=== PATIENT | male | born 1970 | race Caucasian/White ===

== ENCOUNTER 2021-01-06 07:20 | Day surgery (SDC) | payer MEDICARE ==
[2021-01-06] MEDS ORDERED: Depo-Medrol 40 MG/ML IM ONE (07:21)
[2021-01-06] MEDS ORDERED: Xylocaine-Mpf 2% 5 Ml Vial IJ ONE (07:21)
[2021-01-06] MEDS ORDERED: Xylocaine 1% Vial 30 ML PF IJ ONE (07:21)
[2021-01-06] MEDS ORDERED: DIPRIVAN 200 MG/20 ML IV ONE (10:13)
[2021-01-06] MEDS ORDERED: Ketamine HCl 50 MG/ML ONE (10:13)
--- NOTE | 2021-01-06 11:01 | XRAY ---
Indication: Bilateral L4-S1 MBB. Intraoperative fluoroscopy provided for 12 seconds. Single digital spot image submitted for interpretation demonstrates posterior needle tips projecting over the expected left and right L4-S1 nerve roots. Correlate with intraoperative findings/report.
--- NOTE | 2021-01-06 11:04 | XRAY ---
12 seconds fluoroscopy time in surgery for bilateral L4-S1 MBB.
[2021-01-06] MEDS ORDERED: Lactated Ringers 1,000 ML IV ONE (16:32)
== END 2021-01-06 10:42 | disposition home or self-care (01) ==
LOC: SDC-PAIN 07:20
PROVIDERS: ATTEND Psychiatry & Neurology Pain Medicine
DX: M47.816 Spondylosis without myelopathy or radiculopathy, lumbar region (principal); I10 Essential (primary) hypertension; E11.42 Type 2 diabetes mellitus with diabetic polyneuropathy; Z79.899 Other long term (current) drug therapy
CPT/HCPCS: 64493; 64494; 72020; 77002; 82947; J1030; J2001; J2704

== ENCOUNTER 2021-02-24 07:51 | Day surgery (SDC) | payer MEDICARE ==
[2021-02-24] MEDS ORDERED: BUPIVACAINE 0.5% VIAL IJ ONE (07:52)
[2021-02-24] MEDS ORDERED: DIPRIVAN 200 MG/20 ML IV ONE (08:35)
--- NOTE | 2021-02-24 10:06 | XRAY ---
Indication: Bilateral L4-S1 MBB. Intraoperative fluoroscopy provided for 6 seconds. Single digital spot image submitted for interpretation demonstrates posterior needle tips projecting over the expected left and right L4-S1 nerve roots. Correlate with intraoperative findings/report.
--- NOTE | 2021-02-24 10:08 | XRAY ---
6 seconds fluoroscopy time in surgery for bilateral L4-S1 MBB.
[2021-02-24] MEDS ORDERED: Lactated Ringers 1,000 ML IV ONE (16:09)
== END 2021-02-24 09:01 | disposition home or self-care (01) ==
LOC: SDC-PAIN 07:51
PROVIDERS: ATTEND Psychiatry & Neurology Pain Medicine
DX: M47.816 Spondylosis without myelopathy or radiculopathy, lumbar region (principal); E11.42 Type 2 diabetes mellitus with diabetic polyneuropathy; I10 Essential (primary) hypertension; Z79.899 Other long term (current) drug therapy
CPT/HCPCS: 64493; 64494; 72100; 77002; 82947; J2704

== ENCOUNTER 2021-03-24 06:57 | Day surgery (SDC) | payer MEDICARE ==
[2021-03-24] MEDS ORDERED: Xylocaine 1% Vial 30 ML PF IJ ONE (06:58)
[2021-03-24] MEDS ORDERED: BUPIVACAINE 0.5% VIAL IJ ONE (06:58)
[2021-03-24] MEDS ORDERED: Lactated Ringers 1,000 ML IV ONE (16:31)
--- NOTE | 2021-03-24 17:39 | XRAY ---
16 seconds fluoroscopy time in surgery for left L4-S1 RFA.
== END 2021-03-24 09:18 | disposition home or self-care (01) ==
LOC: SDC-PAIN 06:57
PROVIDERS: ATTEND Psychiatry & Neurology Pain Medicine
DX: M47.816 Spondylosis without myelopathy or radiculopathy, lumbar region (principal); E11.42 Type 2 diabetes mellitus with diabetic polyneuropathy; I10 Essential (primary) hypertension; Z79.899 Other long term (current) drug therapy
CPT/HCPCS: 64635; 64636; 72100; 77002; 82947; J2001

== ENCOUNTER 2021-03-31 06:57 | Day surgery (SDC) | payer MEDICARE ==
[2021-03-31] MEDS ORDERED: Depo-Medrol 40 MG/ML IM ONE (06:58)
[2021-03-31] MEDS ORDERED: BUPIVACAINE 0.5% VIAL IJ ONE (06:58)
[2021-03-31] MEDS ORDERED: Xylocaine 1% Vial 30 ML PF IJ ONE (06:58)
[2021-03-31] MEDS ORDERED: DIPRIVAN 200 MG/20 ML IV ONE (07:29)
--- NOTE | 2021-03-31 10:53 | XRAY ---
Indication: Right L4-S1 RFA. Intraoperative fluoroscopy provided for 21 seconds. 3 digital spot images submitted for interpretation demonstrates posterior needle tips projecting over the expected right L4-S1 nerve roots. Correlate with intraoperative findings/report.
--- NOTE | 2021-03-31 11:00 | XRAY ---
21 seconds fluoroscopy time in surgery for right L4-S1 RFA.
[2021-03-31] MEDS ORDERED: Lactated Ringers 1,000 ML IV ONE (15:24)
== END 2021-03-31 08:42 | disposition home or self-care (01) ==
LOC: SDC-PAIN 06:57
PROVIDERS: ATTEND Psychiatry & Neurology Pain Medicine
DX: M47.816 Spondylosis without myelopathy or radiculopathy, lumbar region (principal); I10 Essential (primary) hypertension; E11.42 Type 2 diabetes mellitus with diabetic polyneuropathy; Z79.899 Other long term (current) drug therapy
CPT/HCPCS: 64635; 64636; 72100; 77002; 82947; J1030; J2001; J2704

== ENCOUNTER 2021-05-19 09:49 | Day surgery (SDC) | payer MEDICARE | END 2021-05-19 10:00 | disposition home or self-care (01) | LOC: SDC-PAIN 09:49 | PROVIDERS: ATTEND Psychiatry & Neurology Pain Medicine | DX: Z53.09 Procedure and treatment not carried out because of other contraindication (principal); E11.42 Type 2 diabetes mellitus with diabetic polyneuropathy; I10 Essential (primary) hypertension; Z79.899 Other long term (current) drug therapy | CPT/HCPCS: 82947 ==

== ENCOUNTER 2022-05-11 06:40 | Day surgery (SDC) | payer MEDICARE ==
[2022-05-11] MEDS ORDERED: Sensorcaine 0.25% 10 ML IJ ONE (06:41)
[2022-05-11] MEDS ORDERED: XYLOCAINE-MPF 1% 5ML SDV IJ ONE (06:41)
[2022-05-11] MEDS ORDERED: DIPRIVAN 200 MG/20 ML IV ONE (08:12)
[2022-05-11] MEDS ORDERED: Lactated Ringers 1,000 ML IV ONE (08:30)
--- NOTE | 2022-05-12 18:29 | XRAY ---
37 seconds of fluoroscopy was used in surgery for a right lumbar sympathetic nerve block.
--- NOTE | 2022-05-13 15:46 | XRAY ---
Indication: Right lumbar Sympathetic Nerve Block. Intraoperative fluoroscopy provided for 37 seconds. 4 digital spot images submitted for interpretation demonstrates posterior needle tip projecting just anterior to a mid lumbar L-2L3 segment. Small amounts of contrast injected for needle tip placement. Correlate with intraoperative findings/report.
== END 2022-05-11 08:33 | disposition home or self-care (01) ==
LOC: SDC-PAIN 06:40
PROVIDERS: ATTEND Psychiatry & Neurology Pain Medicine
DX: G90.521 Complex regional pain syndrome I of right lower limb (principal); E11.9 Type 2 diabetes mellitus without complications; Z79.899 Other long term (current) drug therapy
CPT/HCPCS: 01952; 64520; 72100; 77002; 77003; 82947; J2704; Q9966

== ENCOUNTER 2022-05-18 08:49 | Day surgery (SDC) | payer MEDICARE ==
[2022-05-18] MEDS ORDERED: XYLOCAINE-MPF 1% 5ML SDV IJ ONE (08:50)
[2022-05-18] MEDS ORDERED: Sensorcaine 0.25% 10 ML IJ ONE (08:50)
[2022-05-18] MEDS ORDERED: DIPRIVAN 200 MG/20 ML IV ONE (10:26)
--- NOTE | 2022-05-18 11:33 | XRAY ---
Indication: Left lumbar sympathetic nerve block. Intraoperative fluoroscopy provided for 31 seconds. 6 digital spot image submitted for interpretation demonstrates left posterior needle tip projecting anterior to L2. Small amount of contrast injected for needle tip placement. Correlate with intraoperative findings/report.
--- NOTE | 2022-05-18 11:36 | XRAY ---
31 seconds fluoroscopy time in surgery for left lumbar sympathetic nerve block.
[2022-05-18] MEDS ORDERED: Lactated Ringers 1,000 ML IV ONE (14:02)
== END 2022-05-18 10:53 | disposition home or self-care (01) ==
LOC: SDC-PAIN 08:49
PROVIDERS: ATTEND Psychiatry & Neurology Pain Medicine
DX: G90.522 Complex regional pain syndrome I of left lower limb (principal); E11.9 Type 2 diabetes mellitus without complications; Z79.899 Other long term (current) drug therapy
CPT/HCPCS: 01952; 64520; 72100; 77002; 77003; 82947; J2704; Q9966

== ENCOUNTER 2023-03-29 09:58 | Day surgery (SDC) | payer MEDICARE ==
[2023-03-29] MEDS ORDERED: BUPIVACAINE 0.5% VIAL IJ ONE (09:59)
[2023-03-29] MEDS ORDERED: Depo-Medrol 40 MG/ML IM ONE (09:59)
[2023-03-29] MEDS ORDERED: DIPRIVAN 200 MG/20 ML IV ONE (11:11)
--- NOTE | 2023-03-29 13:55 | XRAY ---
Indication: Right shoulder and subacromial bursa injection. Intraoperative fluoroscopy provided for 13 seconds. 3 digital spot image submitted for interpretation demonstrates needle tip projecting over the right glenohumeral joint superiorly. Second needle tip subacromial. Small amount of contrast injected for both needle tip placement. Correlate with intraoperative findings/report.
[2023-03-29] MEDS ORDERED: Lactated Ringers 1,000 ML IV ONE (14:16)
--- NOTE | 2023-03-29 15:56 | XRAY ---
13 seconds of fluoroscopy was used in surgery for a intra-articular shoulder and subacromial bursa injection.
== END 2023-03-29 11:18 | disposition home or self-care (01) ==
LOC: SDC-PAIN 09:58
PROVIDERS: ATTEND Psychiatry & Neurology Pain Medicine
DX: M19.011 Primary osteoarthritis, right shoulder (principal); M75.51 Bursitis of right shoulder; E11.9 Type 2 diabetes mellitus without complications; Z79.899 Other long term (current) drug therapy
CPT/HCPCS: 20610; 73030; 77002; 82947; J1030; J2704; Q9966

== ENCOUNTER 2024-02-28 08:38 | Day surgery (SDC) | payer MEDICARE ==
[2024-02-28] MEDS ORDERED: Depo-Medrol 40 MG/ML IM ONE (08:39)
[2024-02-28] MEDS ORDERED: BUPIVACAINE 0.5% VIAL IJ ONE (08:39)
[2024-02-28] MEDS ORDERED: DIPRIVAN 200 MG/20 ML IV ONE (10:35)
[2024-02-28] MEDS ORDERED: Lactated Ringers 1,000 ML IV ONE (11:06)
--- NOTE | 2024-02-28 12:25 | XRAY ---
Indication: Right shoulder and subacromial bursa injection. Intraoperative fluoroscopy provided for 12 seconds. 2 digital spot image submitted for interpretation demonstrates needle tip projecting over right glenohumeral joint superiorly. Second needle tip subacromial. Small amount of contrast injected for needle tip placement. Correlate with intraoperative findings/report.
--- NOTE | 2024-02-28 12:33 | XRAY ---
12 seconds of fluoroscopy was used in surgery for a right intra-articular shoulder and subacromial bursa injection.
== END 2024-02-28 11:00 | disposition home or self-care (01) ==
LOC: SDC-PAIN 08:38
PROVIDERS: ATTEND Psychiatry & Neurology Pain Medicine
DX: M19.011 Primary osteoarthritis, right shoulder (principal); E11.9 Type 2 diabetes mellitus without complications; M75.51 Bursitis of right shoulder
CPT/HCPCS: 20610; 73030; 77002; 82947; J1010; J2704; Q9966

== ENCOUNTER 2024-04-17 11:40 | Day surgery (SDC) | payer MEDICARE ==
[2024-04-17] MEDS ORDERED: BUPIVACAINE 0.5% VIAL IJ ONE (11:41)
[2024-04-17] MEDS ORDERED: LIDOCAINE HCL 1% 50 MG/5 ML VL PF IJ ONE (11:41)
[2024-04-17] MEDS ORDERED: Reglan 10 MG/2 ML ONE ×2 (12:57→12:59)
[2024-04-17] MEDS ORDERED: Pepcid 20 MG VIAL IV ONE (12:57)
[2024-04-17] MEDS ORDERED: DIPRIVAN 200 MG/20 ML IV ONE (13:36)
[2024-04-17] MEDS ORDERED: Lactated Ringers 1,000 ML IV ONE (13:58)
--- NOTE | 2024-04-17 15:25 | XRAY ---
Indication: Right L4-S1 RFA. Intraoperative fluoroscopy provided for 14 seconds. 3 digital spot images submitted for interpretation demonstrates posterior needle tip projecting over the expected right L4-S1 nerve roots. Correlate with intraoperative findings/report.
--- NOTE | 2024-04-17 15:35 | XRAY ---
14 seconds of fluoroscopy was used in surgery for a right L4-S1 RFA.
== END 2024-04-17 14:06 | disposition home or self-care (01) ==
LOC: SDC-PAIN 11:40
PROVIDERS: ATTEND Psychiatry & Neurology Pain Medicine
DX: M47.816 Spondylosis without myelopathy or radiculopathy, lumbar region (principal); E11.9 Type 2 diabetes mellitus without complications
CPT/HCPCS: 64635; 64636; 72100; 77002; 82947; J2001; J2704

== ENCOUNTER 2024-10-16 07:02 | Day surgery (SDC) | payer MEDICARE ==
[2024-10-16] MEDS ORDERED: LIDOCAINE HCL 1% AMPUL 5 ML IJ ONE (07:03)
[2024-10-16] MEDS ORDERED: BUPIVACAINE 0.5% VIAL IJ ONE (07:03)
[2024-10-16] MEDS ORDERED: DIPRIVAN 200 MG/20 ML IV ONE (08:50)
--- NOTE | 2024-10-16 18:52 | XRAY ---
Indication: Left L4-S1 RFA. Intraoperative fluoroscopy provided for 25 seconds. 4 digital spot image submitted for interpretation demonstrates posterior needle tips projecting over the expected left L4-S1 nerve roots. Correlate with intraoperative findings/report.
--- NOTE | 2024-10-16 19:22 | XRAY ---
25 seconds of fluoroscopy was used in surgery for a left L4-S1 RFA.
== END 2024-10-16 09:19 | disposition home or self-care (01) ==
LOC: SDC-PAIN 07:02
PROVIDERS: ATTEND Psychiatry & Neurology Pain Medicine
DX: M47.817 Spondylosis without myelopathy or radiculopathy, lumbosacral region (principal); E11.9 Type 2 diabetes mellitus without complications
CPT/HCPCS: 64635; 64636; 72100; 77002; 82947; J2704